=== PATIENT | female | born 1955 | race Caucasian/White ===

== ENCOUNTER 2018-05-07 17:36 | Emergency (ER) | payer OTHER ==
[~2018-05-07] VITALS: Wt 55.5 kg
[2018-05-07 17:46] VITALS: BP 118/57; PULSE 62; RESP 22
[2018-05-07] MEDS ORDERED: DIPHTH/TET/ACEL PERTUSS (ADULT) 0.5 ML VIAL IM* ONE (22:00)
[2018-05-07] MEDS ORDERED: BACITUD TOP (22:25)
--- NOTE | 2018-05-07 23:10 | ERD ---
ER Documentation Chief Complaint Chief Complaint R knuckles w lac: 'winding clock and spring broke'. last tetanus 2004 HPI History of Present Illness: Patient coming in today with complaint of laceration to knuckles of right hand. Patient reports winding an old clot in the spring broke and caused lacerations to multiple fingers. Tetanus not up-to-date. Denies any other associated symptoms. Patient able to bend and flex finger without difficulty. At home pharmacological/nonpharmacological treatment for symptoms: denies Denies social concerns; Denies recent foreign travel ROS All systems reviewed and are negative except as per history of present illness. Medications Home Meds Active Scripts Bacitracin* (Bacitracin Oint (UD)*) 1 Applic Oint, 1 APPLIC TOP BID for infection prevention for 5 Days, PKT APPLY TO Prov:NORI ANTHONY NP 05/07/18 Allergies Allergies: Coded Allergies: No Known Allergy (Unverified , 05/07/18) PMhx/Soc History of Surgery: Yes (APPY, Tonsils, Lypoma removal from R ankle) Hx Respiratory Disorders: Yes (Asthma) Hx Alcohol Use: No Hx Substance Use: No Hx Tobacco Use: No Smoking Status: Never smoker FmHx Family History: diabetes; No coronary disease Physical Exam Vitals Vital Signs Date Temp Pulse Resp B/P (MAP) Pulse Ox O2 O2 Flow FiO2 Time Delivery Rate 05/07/18 97.9 62 22 118/57 100 17:46 (77) Physical Exam Const: No acute distress Head: Atraumatic Eyes: Normal Conjunctiva ENT: Normal External Ears, Nose and Mouth. Neck: Full range of motion. No meningismus. Resp: Clear to auscultation bilaterally Cardio: Regular rate and rhythm, no murmurs Abd: Soft, non tender, non distended. Normal bowel sounds Skin: No petechiae or rashes Back: No midline or flank tenderness Ext: No cyanosis, or edema. Lacerations noted to second third fourth digit of right hand. Superficial, bleeding controlled, no avulsion. Neur: Awake and alert Psych: Normal Mood and Affect Results 24 hrs Current Medications Medications Dose Sig/Pio Start Time Status Last (Trade) Ordered Route PRN Stop Time Admin Dose Reason Admin Diphtheria/ 0.5 ml ONCE ONCE 05/07/18 DC 05/07/18 Tetanus/Acell IM* 22:00 22:07 Pertussis 3/31/19 22:01 (Adacel) Procedures/MDM ED course includes a thorough examination and history. ED course includes wound cleaning. Medications: Imaging: -Tdap Labs: - Low suspicion for life-threatening medical emergency. Low suspicion low suspicion for orthopedic emergency that requires hospitalization/immediate intervention. Patient able to bend and extend at the DIP and PIP, no concern for tendon damage. Laceration superficial, no indication for sutures or Dermabond. Otherwise healthy patient presenting with constellation of symptoms likely representing uncomplicated superficial laceration to hand as characterized by history, physical exam findings. No respiratory distress, otherwise relatively well appearing and nontoxic. Patient educated on diagnoses, follow-up care, return precautions. Strict return precautions given for worsening condition; questions answered discharge. Disposition for discharge with followup in 2 days with PCP/clinic. Departure Diagnosis: Primary Impression: Finger injury Encounter type: initial encounter Laterality: right Qualified Codes: S69.91XA - Unspecified injury of right wrist, hand and finger(s), initial encounter Additional Impression: Laceration Condition: Stable Patient Instructions: Laceration, All Referrals: [facility] YOU HAVE RECEIVED A MEDICAL SCREENING EXAM AND THE RESULTS INDICATE THAT YOU DO NOT HAVE A CONDITION THAT REQUIRES URGENT TREATMENT IN THE EMERGENCY DEPARTMENT. FURTHER EVALUATION AND TREATMENT OF YOUR CONDITION CAN WAIT UNTIL YOU ARE SEEN IN YOUR DOCTORS OFFICE WITHIN THE NEXT 1-2 DAYS. IT IS YOUR RESPONSIBILITY TO MAKE AN APPOINTMENT FOR FOLOW-UP CARE. IF YOU HAVE A PRIMARY DOCTOR --you should call your primary doctor and schedule an appointment IF YOU DO NOT HAVE A PRIMARY DOCTOR YOU CAN CALL OUR PHYSICIAN REFERRAL HOTLINE AT IF YOU CAN NOT AFFORD TO SEE A PHYSICIAN YOU CAN CHOSE FROM THE FOLLOWING [facility] [address] [facility] [address] [facility] [address] [facility] [address] [facility] [address] [facility]. [facility]. [address] [facility] YOU HAVE RECEIVED A MEDICAL SCREENING EXAM AND THE RESULTS INDICATE THAT YOU DO NOT HAVE A CONDITION THAT REQUIRES URGENT TREATMENT IN THE EMERGENCY DEPARTMENT. FURTHER EVALUATION AND TREATMENT OF YOUR CONDITION CAN WAIT UNTIL YOU ARE SEEN IN YOUR DOCTORS OFFICE WITHIN THE NEXT 1-2 DAYS. IT IS YOUR RESPONSIBILITY TO MAKE AN APPOINTMENT FOR FOLOW-UP CARE. IF YOU HAVE A PRIMARY DOCTOR --you should call your primary doctor and schedule and appointment IF YOU DO NOT HAVE A PRIMARY DOCTOR YOU CAN CALL OUR PHYSICIAN REFERRAL HOTLINE AT . IF YOU CAN NOT AFFORD TO SEE A PHYSICIAN YOU CAN CHOSE FROM THE FOLLOWING [facility] INSTITUTIONS: [address] [place] [address] [facility] [address] [place] [address] [facility] [address] [place] [address] Additional Instructions: Thank you very much for allowing us to participate in your care. Your health and safety is our top priority at [facility]. It is important to read all discharge instructions and education provided in your discharge packet. No stitches were needed due to wound being superficial, and bleeding controlled. Call your primary care doctor TOMORROW for an appointment during the next 2- 3days and bring all the information and medications prescribed. He should have a wound recheck to ensure that you are healing properly Have prescriptions filled and follow precisely the directions on the label. Bacitracin antibiotic ointment to prevent infection. If the symptoms get worse and your provider is unavailable, return to the Emergency Department immediately. NORI ANTHONY NP May 07, 2018 23:08
== END 2018-05-07 22:43 | disposition home or self-care (01) ==
LOC: FTE 17:36
DX: S61.210A Laceration without foreign body of right index finger without damage to nail, initial encounter (principal); S61.212A Laceration without foreign body of right middle finger without damage to nail, initial encounter; S61.214A Laceration without foreign body of right ring finger without damage to nail, initial encounter; J45.909 Unspecified asthma, uncomplicated; W26.8XXA Contact with other sharp object(s), not elsewhere classified, initial encounter; Y92.9 Unspecified place or not applicable; Z23 Encounter for immunization
CPT/HCPCS: 90471; 90715; Z7502